=== PATIENT | male | born 1990 | race Hispanic/Latino ===

== ENCOUNTER → 2025-01-03 | Day surgery (SDC) | payer OTHER ==
[~2025-01-03] MED LIST: FENTANYL CITRATE/PF 100MCG/2 ML INJ ONE; IMITREX25 MG PO; LIDOCAINE HCL 2% LOCAL INJ 5 ML SDV VIAL INJ ONE; MAGOX 400400 MG PO; MELOXICAM7.5 MG PO; MIDAZOLAM HCL 2 MG/2 ML VIAL ONE; PANTOPRAZOLE SO40 MG PO; PROPOFOL IV EMULSION 10 MG/ML 20 ML VIAL ONE; VITAMIN D350 MCG PO
[2025-01-03] MEDS: LACTATED RINGER'S 1,000 ML ONE (11:39)
[2025-01-03 13:30] VITALS: BP 120/75; PULSE 72; RESP 16; O2SAT 98
== END | disposition home or self-care (01) ==
LOC: OR 10:40
PROVIDERS: ATTEND Internal Medicine Gastroenterology
DX: K21.9 Gastro-esophageal reflux disease without esophagitis (principal); K29.50 Unspecified chronic gastritis without bleeding; K44.9 Diaphragmatic hernia without obstruction or gangrene; G47.33 Obstructive sleep apnea (adult) (pediatric); Z88.0 Allergy status to penicillin; Z79.1 Long term (current) use of non-steroidal anti-inflammatories (NSAID); Z79.899 Other long term (current) drug therapy; Z68.39 Body mass index [BMI] 39.0-39.9, adult
CPT/HCPCS: 43239; J2003; J2250; J2704; J3010; J7121